=== PATIENT | male | born 1960 | race Caucasian/White ===

== ENCOUNTER 2023-05-15 11:39 | Emergency (ER) | payer BC ==
[~2023-05-15] VITALS: Ht 180.3 cm; Wt 98.9 kg
[2023-05-15 11:45] VITALS: BP_SYST 159; PULSE 77; RESP 18; TEMP 98.3; O2SAT 96
[2023-05-15] MEDS ORDERED: NAPR-690 PO (13:07)
== END 2023-05-15 13:32 | disposition home or self-care (01) ==
LOC: SED 11:39
DX: S13.4XXA Sprain of ligaments of cervical spine, initial encounter (principal); S09.90XA Unspecified injury of head, initial encounter; I10 Essential (primary) hypertension; E78.5 Hyperlipidemia, unspecified; Z79.899 Other long term (current) drug therapy; V18.0XXA Pedal cycle driver injured in noncollision transport accident in nontraffic accident, initial encounter; Y93.89 Activity, other specified; Y92.89 Other specified places as the place of occurrence of the external cause; Y99.8 Other external cause status
CPT/HCPCS: 70450-TC; 72125-TC; 76376; 99284